=== PATIENT | male | born 1950 | race Caucasian/White ===

== ENCOUNTER → 2021-03-12 09:06 | Outpatient (CLI) | payer MEDICARE, BC | END | disposition home or self-care (01) | LOC: D.MRI 09:00 | PROVIDERS: ATTEND Internal Medicine Medical Oncology | DX: D69.6 Thrombocytopenia, unspecified (principal); D72.819 Decreased white blood cell count, unspecified; C90.00 Multiple myeloma not having achieved remission; D47.2 Monoclonal gammopathy ==